=== PATIENT | female | born 1945 ===

== ENCOUNTER 2021-11-13 15:12 | Emergency (ER) | payer MEDICARE ==
[2021-11-13 15:40] VITALS: BP 153/52
== END 2021-11-13 23:10 | disposition left against medical advice (07) ==
LOC: ED 15:12
DX: R51.9 Headache, unspecified (principal); Z53.21 Procedure and treatment not carried out due to patient leaving prior to being seen by health care provider

== ENCOUNTER 2021-11-29 11:45 | Observation (INO) | payer MEDICARE ==
[2021-11-29] MEDS ORDERED: METOCLOPRAMIDE 10 MG/2 ML INJ IV ONE (12:19)
[2021-11-29] MEDS ORDERED: LACTATED RINGERS 500 ML IV ONE (12:20)
--- NOTE | 2021-11-29 12:20 | Emergency Department Report ---
ED General Adult HPI - General Chief complaint: Syncope Stated complaint: FAINTING Time Seen by Provider: 11/29/21 12:08 Source: patient, EMS ( EMS documentation not available at time of chart dictation ), RN notes reviewed Mode of arrival: Stretcher Limitations: No Limitations - History of Present Illness Initial comments: The patient was evaluated in the emergency department for symptoms described in the history of present illness. He/she was evaluated in the context of the global COVID-19 pandemic, which necessitated consideration that the patient might be at risk for infection with the virus that causes COVID-19. Institutional protocols and algorithms that pertain to the evaluation of patients at risk for COVID-19 are in a state of rapid change based on information released by regulatory bodies including the CDC and federal and state organizations. These policies and algorithms were followed during the patient's care in the emergency department. Please note that these policies, procedures and recommendations changed on a rapid basis. This patient is a pleasant and cooperative 76-year-old female who recently relocated from [place]. She does not have a local primary care doctor or city supervisor. Her past medical history includes atrial pacemaker, CAD, hypertension and possible high cholesterol. She also reports multiple cardiac stents. She presents to the department today with a complaint of near syncope/loss of consciousness multiple times. About a week ago, she developed an occipital and right-sided left-sided neck headache, which is not sudden or thunderclap in nature, not maximal in intensity. She was seen in an outpatient urgent care center, who recommended that her symptoms are most likely musculoskeletal. T here is no recent trauma, motor vehicle accident, or chiropractic manipulation. Today, she reports that she got up from sitting, and felt lightheaded. She then went to the bathroom, but did not urinate or defecate. She again felt dizzy and lightheaded, but did not pass out. She sat down, and did not hit her head. She then reports that she went to lay down, and felt dizzy and lightheaded again . She reports recent trip from [place]. She denies loss of vision, midline neck pain, chest pain, abdominal pain, shortness of breath, hematemesis and bright red blood per rectum. She endorses compliance with her medications, and reports that she has had no recent medication changes. Patient reports having a pacemaker defibrillator placed at [facility] in 2020. She states that it was placed for a mild heart attack. She does not have a device card on her -: Sudden, days(s) Location: head, neck Severity scale (0 -10): 0 Consistency: intermittent Improves with: none Worsens with: none - Related Data Home Medications Medication Instructions Recorded Confirmed Last Taken Atorvastatin 80 mg PO QHS 11/29/21 11/29/21 Unknown Candesartan (NF) 32 mg PO DAILY 11/29/21 11/29/21 Unknown Isosorbide Mononitrate ER 30 mg PO DAILY 11/29/21 11/29/21 Unknown Nitroglycerin 0.4 mg SL PRN 11/29/21 11/29/21 Unknown Uloric 40 mg PO DAILY 11/29/21 11/29/21 Unknown amLODIPine 10 mg pe PO DAILY 11/29/21 11/29/21 Unknown carvediloL 25 mg PO DAILY 11/29/21 11/29/21 Unknown tiZANidine 4 mg PO Q6HR PRN 11/29/21 11/29/21 Unknown Allergies Allergy/AdvReac Type Severity Reaction Status Date / Time lisinopril AdvReac Angioedema Verified 11/13/21 15:41 ED Review of Systems ROS: Stated complaint: FAINTING Other details as noted in HPI Constitutional: denies: fever Eyes: denies: eye discharge, vision change Respiratory: denies: cough Cardiovascular: syncope (Near syncope). denies: chest pain Gastrointestinal: denies: abdominal pain, hematemesis, melena, hematochezia Genitourinary: denies: dysuria Musculoskeletal: myalgia Neurological: headache. denies: weakness, numbness, paresthesias Hematological/Lymphatic: denies: easy bleeding ED Past Medical Hx - Past Medical History Previous Medical History?: Yes Hx Hypertension: Yes Additional medical history: HYPERLIPIDEMIA, GOUT - Surgical History Hx Pacemaker: Yes - Medications Home Medications: Home Medications Medication Instructions Recorded Confirmed Last Taken Type Atorvastatin 80 mg PO QHS 11/29/21 11/29/21 Unknown History Candesartan (NF) 32 mg PO DAILY 11/29/21 11/29/21 Unknown History Isosorbide Mononitrate ER 30 mg PO DAILY 11/29/21 11/29/21 Unknown History Nitroglycerin 0.4 mg SL PRN 11/29/21 11/29/21 Unknown History Uloric 40 mg PO DAILY 11/29/21 11/29/21 Unknown History amLODIPine 10 mg pe PO DAILY 11/29/21 11/29/21 Unknown History carvediloL 25 mg PO DAILY 11/29/21 11/29/21 Unknown History tiZANidine 4 mg PO Q6HR PRN 11/29/21 11/29/21 Unknown History ED Physical Exam - General Limitations: No Limitations General appearance: alert, in no apparent distress - Head Head exam: Present: atraumatic, normocephalic - Eye Eye exam: Present: normal appearance, EOMI, other (Visual acuity is intact to finger counting and color perception at a close distance). Absent: nystagmus - ENT ENT exam: Present: normal exam, normal orophraynx, mucous membranes moist, normal external ear exam - Neck Neck exam: Present: normal inspection, full ROM. Absent: tenderness, meningismus - Respiratory Respiratory exam: Present: normal lung sounds bilaterally. Absent: respiratory distress, wheezes, rales, rhonchi, stridor, decreased breath sounds - Cardiovascular Cardiovascular Exam: Present: regular rate, normal rhythm, normal heart sounds. Absent: bradycardia, tachycardia, irregular rhythm, systolic murmur, diastolic murmur, rubs, gallop - GI/Abdominal GI/Abdominal exam: Present: soft. Absent: distended, tenderness, guarding, rebound, rigid, pulsatile mass - Extremities Exam Extremities exam: Present: normal inspection, full ROM, other (2+ pulses noted in the bilateral upper and lower extremities. There is no palpable cord. negative Homans sign. Muscular compartments are soft. The pelvis is stable.). Absent: pedal edema, calf tenderness - Back Exam Back exam: Present: normal inspection, full ROM. Absent: tenderness, CVA tenderness (R), CVA tenderness (L), paraspinal tenderness, vertebral tenderness - Neurological Exam Neurological exam: Present: alert (There is no past-pointing. There is normal [id number]. There is no pronator drift.), oriented X3, other (No facial droop. Tongue midline. Extraocular movements intact bilaterally. Facial sensation intact to light touch in V1, V2, V3 distribution bilaterally. 5 and a 5 strength in 4 extremities. Sensation intact to light touch in 4 extremities.) . Absent: motor sensory deficit - Psychiatric Psychiatric exam: Present: normal affect, normal mood - Skin Skin exam: Present: warm, dry, intact, normal color. Absent: rash ED Course Vital Signs 11/29/21 11/29/21 11/29/21 11:54 12:25 12:30 Temperature 97.6 F Pulse Rate 60 64 60 Respiratory 16 9 L 11 L Rate Blood Pressure Blood Pressure 138/64 [Right] O2 Sat by Pulse 100 100 99 Oximetry 11/29/21 11/29/21 11/29/21 12:37 12:46 13:00 Temperature Pulse Rate 60 62 Respiratory 12 15 Rate Blood Pressure 155/52 155/52 Blood Pressure [Right] O2 Sat by Pulse 100 99 100 Oximetry 11/29/21 11/29/21 11/29/21 13:16 13:30 13:46 Temperature Pulse Rate 60 60 63 Respiratory 14 12 8 L Rate Blood Pressure 155/52 155/52 190/64 Blood Pressure [Right] O2 Sat by Pulse 100 99 99 Oximetry 11/29/21 11/29/21 11/29/21 14:00 14:16 14:30 Temperature Pulse Rate 64 60 67 Respiratory 12 14 12 Rate Blood Pressure 155/52 155/52 155/52 Blood Pressure [Right] O2 Sat by Pulse 100 99 Oximetry 11/29/21 11/29/21 11/29/21 14:46 15:00 15:16 Temperature Pulse Rate 63 60 71 Respiratory 13 14 21 Rate Blood Pressure 131/46 190/64 190/64 Blood Pressure [Right] O2 Sat by Pulse Oximetry - Reevaluation(s) Reevaluation #1: 11/29/21 15:11 Differential diagnosis, include but not limited to: Orthostasis, vagal event, structural cardiac disease, pacemaker defibrillator failure, electrolyte derangement, thyroid derangement, migraine headache, tension headache, cluster headache, vertebrobasilar insufficiency, posterior circulation dissection., Pulmonary embolism Assessment and plan: 76-year-old female with complex past medical history, presenting with multiple episodes of near syncope, and nonspecific headache and neck pain. She has a GCS of 15, with an NIH score of 0. She is clinically sober at this time. Her physical examination thus far is benign and non contributory. Attempt [facility], to determine what make and model pacemaker is, and why is placed. Laboratory studies noncontributory. Obtain CT scan of the brain, CT angiogram head and neck. She is not currently tachycardic, tachypneic or hypoxic, but given multiple episodes of near syncope, and recent trip from [place], D-dimer sent, elevated, therefore, obtain CT imaging of the chest to evaluate for large pulmonary embolism. Treat symptoms. Discussed with patient. She is agreeable to the plan of care. All questions are answered. 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 11/29/21 16:29 CT scan brain negative for acute findings. CT angiogram head and neck negative for acute findings Discussed with [employer] dental sales representative, . Alban Levy. The ER/hospital does not have a device to do an ICD interrogation. He reports that [employer] can present tomorrow to do a device interrogation. Hospital physician, Dr. Radha Desai to admit to [facility] ED Medical Decision Making - Lab Data Result diagrams: 11/29/21 13:55 11/29/21 13:55 Vital Signs 11/29/21 11/29/21 11/29/21 11:54 12:25 12:30 Temperature 97.6 F Pulse Rate 60 64 60 Respiratory 16 9 L 11 L Rate Blood Pressure Blood Pressure 138/64 [Right] O2 Sat by Pulse 100 100 99 Oximetry 11/29/21 11/29/21 12:37 12:46 Temperature Pulse Rate 60 Respiratory 12 Rate Blood Pressure 155/52 Blood Pressure [Right] O2 Sat by Pulse 100 99 Oximetry Lab Results 11/29/21 11/29/21 11/29/21 Range/Units 12:55 13:55 13:55 WBC 8.5 (4.5-11.0) K/mm3 RBC 3.80 (3.65-5.03) M/mm3 Hgb 10.0 L (10.1-14.3) gm/dl Hct 31.6 (30.3-42.9) % MCV 83 (79-97) fl MCH 26 L (28-32) pg MCHC 32 (30-34) % RDW 16.3 H (13.2-15.2) % Plt Count 296 (140-440) K/mm3 Lymph % (Auto) 20.4 (13.4-35.0) % [place] % (Auto) 5.5 (0.0-7.3) % Eos % (Auto) 0.3 (0.0-4.3) % Baso % (Auto) 0.8 (0.0-1.8) % Lymph # (Auto) 1.7 (1.2-5.4) K/mm3 [place] # (Auto) 0.5 (0.0-0.8) K/mm3 Eos # (Auto) 0.0 (0.0-0.4) K/mm3 Baso # (Auto) 0.1 (0.0-0.1) K/mm3 Seg Neutrophils % 73.0 H (40.0-70.0) % Seg Neutrophils # 6.2 (1.8-7.7) K/mm3 D-Dimer (0-234) ng/mlDDU Sodium 142 (137-145) mmol/L Potassium 4.3 (3.6-5.0) mmol/L Chloride 106.8 (98-107) mmol/L Carbon Dioxide 24 (22-30) mmol/L Anion Gap 16 mmol/L BUN 12 (7-17) mg/dL Creatinine 0.7 (0.6-1.2) mg/dL Estimated GFR > 60 ml/min BUN/Creatinine Ratio 17 % Glucose 100 (65-100) mg/dL Calcium 9.4 (8.4-10.2) mg/dL Magnesium 1.70 (1.7-2.3) mg/dL Total Bilirubin 0.50 (0.1-1.2) mg/dL AST 21 (5-40) units/L ALT 9 (7-56) units/L Alkaline Phosphatase 112 (35-129) units/L Total Creatine Kinase (30-135) units/L Troponin T < 0.010 (0.00-0.029) ng/mL Total Protein 7.9 (6.3-8.2) g/dL Albumin 3.9 (3.9-5) g/dL Albumin/Globulin Ratio 1.0 % TSH (0.270-4.200) mlU/mL Urine Color Straw (Yellow) Urine Turbidity Clear (Clear) Urine pH 7.0 (5.0-7.0) Ur Specific Shock 1.009 (1.003-1.030) Urine Protein <15 mg/dl (Negative) mg/dL Urine Glucose (UA) Neg (Negative) mg/dL Urine Ketones Neg (Negative) mg/dL Urine Blood Sm (Negative) Urine Nitrite Neg (Negative) Urine Bilirubin Neg (Negative) Urine Urobilinogen < 2.0 (<2.0) mg/dL Ur Leukocyte Esterase Neg (Negative) Urine WBC (Auto) 1.0 (0.0-6.0) /HPF Urine RBC (Auto) 10.0 (0.0-6.0) /HPF U Epithel Cells (Auto) 1.0 (0-13.0) /HPF Urine Bacteria (Auto) 1+ (Negative) /HPF Salicylates (2.8-20.0) mg/dL Acetaminophen (10.0-30.0) ug/mL 11/29/21 11/29/21 11/29/21 Range/Units 13:55 13:55 13:55 WBC (4.5-11.0) K/mm3 RBC (3.65-5.03) M/mm3 Hgb (10.1-14.3) gm/dl Hct (30.3-42.9) % MCV (79-97) fl MCH (28-32) pg MCHC (30-34) % RDW (13.2-15.2) % Plt Count (140-440) K/mm3 Lymph % (Auto) (13.4-35.0) % [place] % (Auto) (0.0-7.3) % Eos % (Auto) (0.0-4.3) % Baso % (Auto) (0.0-1.8) % Lymph # (Auto) (1.2-5.4) K/mm3 [place] # (Auto) (0.0-0.8) K/mm3 Eos # (Auto) (0.0-0.4) K/mm3 Baso # (Auto) (0.0-0.1) K/mm3 Seg Neutrophils % (40.0-70.0) % Seg Neutrophils # (1.8-7.7) K/mm3 D-Dimer 795.20 H (0-234) ng/mlDDU Sodium (137-145) mmol/L Potassium (3.6-5.0) mmol/L Chloride (98-107) mmol/L Carbon Dioxide (22-30) mmol/L Anion Gap mmol/L BUN (7-17) mg/dL Creatinine (0.6-1.2) mg/dL Estimated GFR ml/min BUN/Creatinine Ratio % Glucose (65-100) mg/dL Calcium (8.4-10.2) mg/dL Magnesium (1.7-2.3) mg/dL Total Bilirubin (0.1-1.2) mg/dL AST (5-40) units/L ALT (7-56) units/L Alkaline Phosphatase (35-129) units/L Total Creatine Kinase 87 (30-135) units/L Troponin T (0.00-0.029) ng/mL Total Protein (6.3-8.2) g/dL Albumin (3.9-5) g/dL Albumin/Globulin Ratio % TSH 1.200 (0.270-4.200) mlU/mL Urine Color (Yellow) Urine Turbidity (Clear) Urine pH (5.0-7.0) Ur Specific Shock (1.003-1.030) Urine Protein (Negative) mg/dL Urine Glucose (UA) (Negative) mg/dL Urine Ketones (Negative) mg/dL Urine Blood (Negative) Urine Nitrite (Negative) Urine Bilirubin (Negative) Urine Urobilinogen (<2.0) mg/dL Ur Leukocyte Esterase (Negative) Urine WBC (Auto) (0.0-6.0) /HPF Urine RBC (Auto) (0.0-6.0) /HPF U Epithel Cells (Auto) (0-13.0) /HPF Urine Bacteria (Auto) (Negative) /HPF Salicylates (2.8-20.0) mg/dL Acetaminophen (10.0-30.0) ug/mL 11/29/21 11/29/21 Range/Units 13:55 13:55 WBC (4.5-11.0) K/mm3 RBC (3.65-5.03) M/mm3 Hgb (10.1-14.3) gm/dl Hct (30.3-42.9) % MCV (79-97) fl MCH (28-32) pg MCHC (30-34) % RDW (13.2-15.2) % Plt Count (140-440) K/mm3 Lymph % (Auto) (13.4-35.0) % [place] % (Auto) (0.0-7.3) % Eos % (Auto) (0.0-4.3) % Baso % (Auto) (0.0-1.8) % Lymph # (Auto) (1.2-5.4) K/mm3 [place] # (Auto) (0.0-0.8) K/mm3 Eos # (Auto) (0.0-0.4) K/mm3 Baso # (Auto) (0.0-0.1) K/mm3 Seg Neutrophils % (40.0-70.0) % Seg Neutrophils # (1.8-7.7) K/mm3 D-Dimer (0-234) ng/mlDDU Sodium (137-145) mmol/L Potassium (3.6-5.0) mmol/L Chloride (98-107) mmol/L Carbon Dioxide (22-30) mmol/L Anion Gap mmol/L BUN (7-17) mg/dL Creatinine (0.6-1.2) mg/dL Estimated GFR ml/min BUN/Creatinine Ratio % Glucose (65-100) mg/dL Calcium (8.4-10.2) mg/dL Magnesium (1.7-2.3) mg/dL Total Bilirubin (0.1-1.2) mg/dL AST (5-40) units/L ALT (7-56) units/L Alkaline Phosphatase (35-129) units/L Total Creatine Kinase (30-135) units/L Troponin T (0.00-0.029) ng/mL Total Protein (6.3-8.2) g/dL Albumin (3.9-5) g/dL Albumin/Globulin Ratio % TSH (0.270-4.200) mlU/mL Urine Color (Yellow) Urine Turbidity (Clear) Urine pH (5.0-7.0) Ur Specific Shock (1.003-1.030) Urine Protein (Negative) mg/dL Urine Glucose (UA) (Negative) mg/dL Urine Ketones (Negative) mg/dL Urine Blood (Negative) Urine Nitrite (Negative) Urine Bilirubin (Negative) Urine Urobilinogen (<2.0) mg/dL Ur Leukocyte Esterase (Negative) Urine WBC (Auto) (0.0-6.0) /HPF Urine RBC (Auto) (0.0-6.0) /HPF U Epithel Cells (Auto) (0-13.0) /HPF Urine Bacteria (Auto) (Negative) /HPF Salicylates < 0.3 L (2.8-20.0) mg/dL Acetaminophen 5.0 L (10.0-30.0) ug/mL - EKG Data -: EKG Interpreted by Sd - EKG Data When compared to previous EKG there are: previous EKG unavailable 11/29/21 15:05 EKG is interpreted at 12: 20 Atrial ventricular dual paced rhythm. Biventricular paced rhythm. Good capture, ventricular rate 59 to 60 bpm, left axis deviation, QTC 560 ms. Abnormal EKG. Non-STEMI - Radiology Data Radiology results: pending, report reviewed, image reviewed CT head/brain wo con INDICATION: headache, neck pain fainting. TECHNIQUE: Routine CT head. All CT scans at this location are performed using CT dose r eduction for ALARA by means of automated exposure control. COMPARISON: None. FINDINGS: Intracranial: Kaufman-white matter differentiation is maintained. No intracranial hemorrhage. No extra axial collection. No hydrocephalus. No herniation. Minimal patchy areas of scattered white matter hypoattenuation most consistent with minimal sequela of chronic microvascular disease, common finding for age. Sinuses: Paranasal sinuses and mastoid air cells are essentially clear. Orbits: Globes are intact. Calvarium: No acute fracture. IMPRESSION: 1. No acute intracranial abnormality. Signer Name: Kaleb Rizzo MD Signed: 11/29/2021 3:02 PM Workstation Name: [id number] CT angio chest INDICATION / CLINICAL INFORMATION: Near syncope multiple times, elevated D-dimer. TECHNIQUE: Axial CT images were obtained through the chest after injection of IV contrast. 3 plane MIP and/or 3D reconstructions were p roduced. All CT scans at this location are performed using CT dose reduction for [employer] by means of automated exposure control. COMPARISON: None available. FINDINGS: PULMONARY ARTERIES: No pulmonary emboli. HEART: Large quantity of multivessel coronary atherosclerotic calcifications. AORTA: Large quantity of arterial atherosclerosis. MEDIASTINUM / KELLY: No significant abnormality. LUNGS: Lungs are clear No pleural effusion. No pneumothorax. ADDITIONAL FINDINGS: Transvenous AICD. UPPER ABDOMEN: No acute findings. SKELETAL STRUCTURES: No significant osseous abnormality. IMPRESSION: 1. No CT evidence for pulmonary embolism. 2. No acute findings. Signer Name: Kaleb Rizzo MD Signed: 11/29/2021 3:06 PM Workstation Name: [id number] CTA NECK WITH CONTRAST 10/30/2021 INDICATION / CLINICAL INFORMATION: headache, neck pain fainting. COMPARISON: None. TECHNIQUE: Routine CTA of the neck is performed. 3-D/MIP reformats were postprocessed. Percentage stenosis is determined by direct quantitative measurements of diseased internal carotid artery diameter compared with normal distal internal carotid artery reference segments or by criteria similar to NASCET where applicable. All CT scans at this location are performed using CT dose reduction for ALARA by means of automated exposure control. CONTRAST: 100 ml of inflammation not provided FINDINGS: Carotid bifurcations: At the right bifurcation, atherosclerotic plaque and calcification is present, associated with high-grade stenosis near the origin of the right internal carotid artery, in the range of greater than 90%. At the left bifurcation, as is chronic calcification and plaque is present. There is 75% narrowing of the occipital internal carotid artery. Carotid arteries: No significant abnormality. Cervical vertebral arteries: No significant abnormality. Aortic arch: Atherosclerotic calcification associated with the aortic arch and proximal great vessels. There is evidence of stenosis at their origin of the left subclavian artery. None. IMPRESSION: Bilateral carotid bifurcation stenosis, slightly greater on the right. Signer Name: Jensen Cramer MD Signed: 11/29/2021 3:14 PM Workstation Name: [id number] CTA HEAD WITH CONTRAST 11/29/2021 HISTORY: headache, neck pain fainting. COMPARISON: None. TECHNIQUE: All CT scans at this location are performed using CT dose reduction for ALARA by means of automated exposure control.. 3-D/MIP reformats postprocessed. Percentage stenosis is determined by direct qu antitative measurements of diseased internal carotid artery diameter compared with normal distal internal carotid artery reference segments or by criteria similar to NASCET where applicable. CONTRAST: 75 ml of Omnipaque 350 FINDINGS: CTA HEAD: Intracranial vertebral arteries: No significant abnormality. Basilar artery: No significant abnormality. Posterior cerebral arteries: No significant abnormality. Intracranial internal carotid arteries: There is chronic plaque and calcifications associated with the distal internal carotid arteries bilaterally. Anterior cerebral arteries: No significant abnormality. Middle cerebral arteries: No significant abnormality. Dural venous sinuses:Not optim ally opacified. No significant abnormality. Additional findings: None. IMPRESSION: 1. No significant abnormality. Signer Name: Jensen Cramer MD Signed: 11/29/2021 3:17 PM Workstation Name: [id number] Critical care attestation.: If time is entered above; I have spent that time in minutes in the direct care of this critically ill patient, excluding procedure time. ED Disposition Clinical Impression: Near syncope, Acute headache, Neck pain, Implantable cardioverter-defibrillator (ICD) in situ Disposition: 09 ADMITTED INPATIENT Is pt being admited?: Yes Does the pt Need Aspirin: No Condition: Good Referrals: PRIMARY CARE, [Primary Care Provider] - 3-5 Days
[2021-11-29 13:07] LABS: Bilirubin,Urine NEG (Negative); Blood,Urine SM (Negative); Color,Urine Straw (Yellow); Protein,Urine <15 mg/dL mg/dL (Negative); Urobilinogen,Urine < 2.0 mg/dL (<2.0)
[2021-11-29 13:34] LABS: Bacteria,Urine 1+ /HPF (Negative)
[2021-11-29 14:23] LABS: Basophils # (Auto) 0.1 K/mm3 (0.0-0.1); Basophils % (Auto) 0.8 % (0.0-1.8); Eosinophils % (Auto) 0.3 % (0.0-4.3); Hematocrit 31.6 % (30.3-42.9); Lymphocytes # (Auto) 1.7 K/mm3 (1.2-5.4); Lymphocytes % (Auto) 20.4 % (13.4-35.0); Mean Corpuscular HGB Conc 32 % (30-34); Mean Corpuscular Volume 83 fl (79-97); Monocytes # (Auto) 0.5 K/mm3 (0.0-0.8); Monocytes % (Auto) 5.5 % (0.0-7.3); Platelet Count 296 K/mm3 (140-440); Red Cell Distribution Width 16.3 % (13.2-15.2)
[2021-11-29 14:47] LABS: Alanine Aminotransferase 9 units/L (7-56); Albumin 3.9 g/dL (3.9-5); Blood Urea Nitrogen 12 mg/dL (7-17); Calcium 9.4 mg/dL (8.4-10.2); Hemolysis Index 3
[2021-11-29 14:48] LABS: BUN/Creatinine Ratio 17
--- NOTE | 2021-11-29 16:07 | Cat Scan Report ---
CT head/brain wo con INDICATION: headache, neck pain fainting. TECHNIQUE: Routine CT head. All CT scans at this location are performed using CT dose reduction for A GINA by means of automated exposure control. COMPARISON: None. FINDINGS: Intracranial: Kaufman-white matter differentiation is maintained. No intracranial hemorrhage. No extra a xial collection. No hydrocephalus. No herniation. Minimal patchy areas of scattered white matter hypo attenuation most consistent with minimal sequela of chronic microvascular disease, common finding for age. Sinuses: Paranasal sinuses and mastoid air cells are essentially clear. Orbits: Globes are intact. Calvarium: No acute fracture. IMPRESSION: 1. No acute intracranial abnormality. Signer Name: Kaleb Rizzo MD Signed: 11/29/2021 4:02 PM Workstation Name: [id number]
--- NOTE | 2021-11-29 16:11 | Cat Scan Report ---
CT angio chest INDICATION / CLINICAL INFORMATION: Near syncope multiple times, elevated D-dimer. TECHNIQUE: Axial CT images were obtained through the chest after injection of IV contrast. 3 plane MIP and/or 3D reconstructions were produced. All CT scans at this location are performed using CT dose reduction f or ALARA by means of automated exposure control. COMPARISON: None available. FINDINGS: PULMONARY ARTERIES: No pulmonary emboli. HEART: Large quantity of multivessel coronary atherosclerotic calcifications. AORTA: Large quantity of arterial atherosclerosis. MEDIASTINUM / KELLY: No significant abnormality. LUNGS: Lungs are clear No pleural effusion. No pneumothorax. ADDITIONAL FINDINGS: Transvenous AICD. UPPER ABDOMEN: No acute findings. SKELETAL STRUCTURES: No significant osseous abnormality. IMPRESSION: 1. No CT evidence for pulmonary embolism. 2. No acute findings. Signer Name: Kaleb Rizzo MD Signed: 11/29/2021 4:06 PM Workstation Name: [id number]
--- NOTE | 2021-11-29 16:19 | Cat Scan Report ---
CTA NECK WITH CONTRAST 10/30/2021 INDICATION / CLINICAL INFORMATION: headache, neck pain fainting. COMPARISON: None. TECHNIQUE: Routine CTA of the neck is performed. 3-D/MIP reformats were postprocessed. Percentage st enosis is determined by direct quantitative measurements of diseased internal carotid artery diameter compared with normal distal internal carotid artery reference segments or by criteria similar to ANDI CET where applicable. All CT scans at this location are performed using CT dose reduction for ALARA b y means of automated exposure control. CONTRAST: 100 ml of inflammation not provided FINDINGS: Carotid bifurcations: At the right bifurcation, atherosclerotic plaque and calcification is present, associated with high-grade stenosis near the origin of the right internal carotid artery, in the rang e of greater than 90%. At the left bifurcation, as is chronic calcification and plaque is present. Th ere is 75% narrowing of the occipital internal carotid artery. Carotid arteries: No significant abnormality. Cervical vertebral arteries: No significant abnormality. Aortic arch: Atherosclerotic calcification associated with the aortic arch and proximal great vessels . There is evidence of stenosis at their origin of the left subclavian artery. None. IMPRESSION: Bilateral carotid bifurcation stenosis, slightly greater on the right. Signer Name: Jensen Cramer MD Signed: 11/29/2021 4:14 PM Workstation Name: [id number]
--- NOTE | 2021-11-29 16:21 | Cat Scan Report ---
CTA HEAD WITH CONTRAST 11/29/2021 HISTORY: headache, neck pain fainting. COMPARISON: None. TECHNIQUE: All CT scans at this location are performed using CT dose reduction for ALARA by means of automated exposure control.. 3-D/MIP reformats postprocessed. Percentage stenosis is determined by d irect quantitative measurements of diseased internal carotid artery diameter compared with normal dis tresa internal carotid artery reference segments or by criteria similar to NASCET where applicable. CONTRAST: 75 ml of Omnipaque 350 FINDINGS: CTA HEAD: Intracranial vertebral arteries: No significant abnormality. Basilar artery: No significant abnormality. Posterior cerebral arteries: No significant abnormality. Intracranial internal carotid arteries: There is chronic plaque and calcifications associated with th e distal internal carotid arteries bilaterally. Anterior cerebral arteries: No significant abnormality. Middle cerebral arteries: No significant abnormality. Dural venous sinuses:Not optimally opacified. No significant abnormality. Additional findings: None. IMPRESSION: 1. No significant abnormality. Signer Name: Jensen Cramer MD Signed: 11/29/2021 4:17 PM Workstation Name: [id number]
[2021-11-29] MEDS ORDERED: ONDANSETRON 4 MG/2 ML INJ IV PRN (17:29)
[2021-11-29] MEDS ORDERED: oxyCODONE /ACETAMINOPHEN 5-325MG TAB PO PRN (17:29)
[2021-11-29] MEDS ORDERED: NON-FORMULARY EACH (Tizanidine 4 MG) PO PRN (17:37)
[2021-11-29] MEDS ORDERED: ISOSORBIDE MONONITRATE 30 MG PO SCH (17:45)
[2021-11-29] MEDS ORDERED: ULORIC 40 MG PO SCH (17:45)
[2021-11-29] MEDS ORDERED: tiZANidine TAB 4 MG TAB PO PRN (17:46)
[2021-11-29] MEDS ORDERED: NON-FORMULARY EACH (Atorvastatin 80 MG) PO SCH (22:00)
[2021-11-29] MEDS ORDERED: MORPHINE 2 MG/1 ML INJ IV ONE (22:43)
[2021-11-30 05:58] LABS: Basophils % (Auto) 0.4 % (0.0-1.8); Eosinophils % (Auto) 0.4 % (0.0-4.3); Hematocrit 32.6 % (30.3-42.9); Hemoglobin 10.5 gm/dl (10.1-14.3); Lymphocytes # (Auto) 2.3 K/mm3 (1.2-5.4); Lymphocytes % (Auto) 30.8 % (13.4-35.0); Mean Corpuscular HGB Conc 32 % (30-34); Mean Corpuscular Volume 83 fl (79-97); Monocytes # (Auto) 0.6 K/mm3 (0.0-0.8); Monocytes % (Auto) 8.2 % (0.0-7.3); Platelet Count 341 K/mm3 (140-440); Red Blood Count 3.94 M/mm3 (3.65-5.03); Red Cell Distribution Width 16.3 % (13.2-15.2)
[2021-11-30 06:15] LABS: BUN/Creatinine Ratio 13; Blood Urea Nitrogen 12 mg/dL (7-17); Calcium 9.9 mg/dL (8.4-10.2); Hemolysis Index 1
--- NOTE | 2021-11-30 07:58 | History and Physical Report ---
History of Present Illness Date of examination: 11/29/21 Date of admission: 11/29/21 17:29 Chief complaint: Nearly passed out this a.m. History of present illness: This patient is a pleasant and cooperative 76-year-old female who recently relocated from [place]. She does not have a local primary care doctor or product support consultant. Her past medical history includes atrial pacemaker, CAD, hypertension and possible high cholesterol. She also reports multiple cardiac stents. She presents to the department today with a complaint of near syncope/loss of consciousness multiple times. About a week ago, she developed an occipital and right-sided left-sided neck headache, which is not sudden or thunderclap in nature, not maximal in intensity. She was seen in an outpatient urgent care center, who recommended that her symptoms are most likely musculoskeletal. There is no recent trauma, motor vehicle accident, or chiropractic manipulation. Today, she reports that she got up from sitting, and felt lightheaded. She then went to the bathroom, but did not urinate or defecate. She again felt dizzy and lightheaded, but did not pass out. She sat down, and did not hit her head. She then reports that she went to lay down, and felt dizzy and lightheaded again. She reports recent trip from [place]. She denies loss of vision, midline neck pain, chest pain, abdominal pain, shortness of breath, hematemesis and bright red blood per rectum. She endorses compliance with her medications, and reports that she has had no recent medication changes. Patient reports having a pacemaker defibrillator placed at [facility] in 2020. She states that it was placed for a mild heart attack. She does not have a device card on her - Past Medical History --Previous Medical History?: Yes --Hypertension: Yes --Additional medical history: HYPERLIPIDEMIA, GOUT - Surgical History --Pacemaker: Yes - Medications --Home Medications: Home Medications Medication Instructions Recorded Confirmed Last Taken Type Atorvastatin 80 mg PO QHS 11/29/21 11/29/21 Unknown History Candesartan (NF) 32 mg PO DAILY 11/29/21 11/29/21 Unknown History Isosorbide Mononitrate ER 30 mg PO DAILY 11/29/21 11/29/21 Unknown History Nitroglycerin 0.4 mg SL PRN 11/29/21 11/29/21 Unknown History Uloric 40 mg PO DAILY 11/29/21 11/29/21 Unknown History amLODIPine 10 mg pe PO DAILY 11/29/21 11/29/21 Unknown History carvediloL 25 mg PO DAILY 11/29/21 11/29/21 Unknown History tiZANidine 4 mg PO Q6HR PRN 11/29/21 11/29/21 Unknown History Review of Systems ROS: Stated complaint: FAINTING Other details as noted in HPI Constitutional: denies: fever Eyes: denies: eye discharge, vision change Respiratory: denies: cough Cardiovascular: syncope (Near syncope). denies: chest pain Gastrointestinal: denies: abdominal pain, hematemesis, melena, hematochezia Genitourinary: denies: dysuria Musculoskeletal: myalgia Neurological: headache. denies: weakness, numbness, paresthesias Hematological/Lymphatic: denies: easy bleeding Medications and Allergies Allergies Allergy/AdvReac Type Severity Reaction Status Date / Time lisinopril Allergy Angioedema Verified 11/29/21 17:36 Home Medications Medication Instructions Recorded Confirmed Last Taken Type Atorvastatin 80 mg PO QHS 11/29/21 11/29/21 Unknown History Candesartan (NF) 32 mg PO DAILY 11/29/21 11/29/21 Unknown History Isosorbide Mononitrate ER 30 mg PO DAILY 11/29/21 11/29/21 Unknown History Nitroglycerin 0.4 mg SL PRN 11/29/21 11/29/21 Unknown History Uloric 40 mg PO DAILY 11/29/21 11/29/21 Unknown History amLODIPine 10 mg pe PO DAILY 11/29/21 11/29/21 Unknown History carvediloL 25 mg PO DAILY 11/29/21 11/29/21 Unknown History tiZANidine 4 mg PO Q6HR PRN 11/29/21 11/29/21 Unknown History Active Meds: Active Medications Acetaminophen (Acetaminophen 325 Mg Tab) 650 mg PO Q4H PRN PRN Reason: Pain MILD(1-3)/Fever >100.5/REED Amlodipine Besylate (Amlodipine 10 Mg Tab) 10 mg PO DAILY [facility] Atorvastatin Calcium (Atorvastatin 40 Mg Tab) 80 mg PO QHS [facility] Last Admin: 11/29/21 23:05 Dose: Not Given Isosorbide Mononitrate (Isosorbide Mononitrate Er 30 Mg Tab) 30 mg PO DAILY [facility] Losartan Potassium (Losartan 50 Mg Tab) 100 mg PO QDAY [facility] Miscellaneous Medication (Uloric) 40 mg PO DAILY [facility] Ondansetron HCl (Ondansetron 4 Mg/2 Ml Inj) 4 mg IV Q8H PRN PRN Reason: Nausea And Vomiting Last Admin: 11/30/21 00:25 Dose: 4 mg Oxycodone/Acetaminophen (Oxycodone /Acetaminophen 5-325mg Tab) 1 tab PO Q6H PRN PRN Reason: Pain, Moderate (4-6) Pneumococcal Polyvalent Vaccine (Pneumococcal 23 Valent 0.5 Ml Vial) 0.5 ml IM .ONCE ONE Stop: 11/30/21 12:01 Sodium Chloride (Sodium Chloride 0.9% 10 Ml Flush Syringe) 10 ml IV BID DAVID Last Admin: 11/29/21 23:28 Dose: 10 ml Sodium Chloride (Sodium Chloride 0.9% 10 Ml Flush Syringe) 10 ml IV PRN PRN PRN Reason: LINE FLUSH Tizanidine HCl (Tizanidine Tab 4 Mg Tab) 4 mg PO Q6HR PRN PRN Reason: Muscle Spasm Exam - Constitutional Vitals: Temp Pulse Resp BP Pulse Ox 97.6 F 67 16 99/54 99 11/29/21 11:54 11/29/21 23:31 11/29/21 23:31 11/29/21 23:31 11/29/21 23:31 General appearance: Present: no acute distress, well-nourished - EENT Eyes: Present: PERRL ENT: hearing intact, clear oral mucosa - Neck Neck: Present: supple, normal ROM - Respiratory Respiratory effort: normal Respiratory: bilateral: CTA - Cardiovascular Heart rate: 78 Rhythm: regular Heart Sounds: Present: S1 & S2. Absent: rub, click - Extremities Extremities: no ischemia, pulses intact, pulses symmetrical, No edema Peripheral Pulses: within normal limits - Abdominal General gastrointestinal: Present: soft, non-tender, non-distended, normal bowel sounds Female genitourinary: Present: normal - Integumentary Integumentary: Present: clear, warm, dry - Musculoskeletal Musculoskeletal: gait normal, strength equal bilaterally - Psychiatric Psychiatric: appropriate mood/affect, intact judgment & insight - Neurologic Neurologic: CNII-XII intact, moves all extremities - Allied Health Allied health notes reviewed: nursing HEART Score - HEART Score History: Moderately suspicious Age: > 65 Risk factors: 1-2 risk factors Troponin: Troponin T < 0.010 ng/mL (0.00-0.029) 11/29/21 13:55 Troponin: < normal limit - Critical Actions Critical Actions: 4-6 pts:12-16.6% risk of adverse cardiac event. Should be admitted Results - Labs CBC & Chem 7: 11/30/21 05:31 11/30/21 05:31 Labs: Laboratory Last Values WBC 7.5 K/mm3 (4.5-11.0) 11/30/21 05:31 RBC 3.94 M/mm3 (3.65-5.03) 11/30/21 05:31 Hgb 10.5 gm/dl (10.1-14.3) 11/30/21 05:31 Hct 32.6 % (30.3-42.9) 11/30/21 05:31 MCV 83 fl (79-97) 11/30/21 05:31 MCH 27 pg (28-32) L 11/30/21 05:31 MCHC 32 % (30-34) 11/30/21 05:31 RDW 16.3 % (13.2-15.2) H 11/30/21 05:31 Plt Count 341 K/mm3 (140-440) 11/30/21 05:31 Lymph % (Auto) 30.8 % (13.4-35.0) 11/30/21 05:31 [place] % (Auto) 8.2 % (0.0-7.3) H 11/30/21 05:31 Eos % (Auto) 0.4 % (0.0-4.3) 11/30/21 05:31 Baso % (Auto) 0.4 % (0.0-1.8) 11/30/21 05:31 Lymph # (Auto) 2.3 K/mm3 (1.2-5.4) 11/30/21 05:31 [place] # (Auto) 0.6 K/mm3 (0.0-0.8) 11/30/21 05:31 Eos # (Auto) 0.0 K/mm3 (0.0-0.4) 11/30/21 05:31 Baso # (Auto) 0.0 K/mm3 (0.0-0.1) 11/30/21 05:31 Seg Neutrophils % 60.2 % (40.0-70.0) 11/30/21 05:31 Seg Neutrophils # 4.5 K/mm3 (1.8-7.7) 11/30/21 05:31 D-Dimer 795.20 ng/mlDDU (0-234) H 11/29/21 13:55 Sodium 142 mmol/L (137-145) 11/30/21 05:31 Potassium 4.5 mmol/L (3.6-5.0) 11/30/21 05:31 Chloride 101.4 mmol/L (98-107) 11/30/21 05:31 Carbon Dioxide 29 mmol/L (22-30) 11/30/21 05:31 Anion Gap 16 mmol/L 11/30/21 05:31 BUN 12 mg/dL (7-17) 11/30/21 05:31 Creatinine 0.9 mg/dL (0.6-1.2) 11/30/21 05:31 Estimated GFR > 60 ml/min 11/30/21 05:31 BUN/Creatinine Ratio 13 % 11/30/21 05:31 Glucose 96 mg/dL (65-100) 11/30/21 05:31 Calcium 9.9 mg/dL (8.4-10.2) 11/30/21 05:31 Magnesium 1.70 mg/dL (1.7-2.3) 11/29/21 13:55 Total Bilirubin 0.50 mg/dL (0.1-1.2) 11/29/21 13:55 AST 21 units/L (5-40) 11/29/21 13:55 ALT 9 units/L (7-56) 11/29/21 13:55 Alkaline Phosphatase 112 units/L (35-129) 11/29/21 13:55 Total Creatine Kinase 87 units/L (30-135) 11/29/21 13:55 Troponin T < 0.010 ng/mL (0.00-0.029) 11/29/21 13:55 Total Protein 7.9 g/dL (6.3-8.2) 11/29/21 13:55 Albumin 3.9 g/dL (3.9-5) 11/29/21 13:55 Albumin/Globulin Ratio 1.0 % 11/29/21 13:55 TSH 1.200 mlU/mL (0.270-4.200) 11/29/21 13:55 Urine Color Straw (Yellow) 11/29/21 12:55 Urine Turbidity Clear (Clear) 11/29/21 12:55 Urine pH 7.0 (5.0-7.0) 11/29/21 12:55 Ur Specific [place] 1.009 (1.003-1.030) 11/29/21 12:55 Urine Protein <15 mg/dl mg/dL (Negative) 11/29/21 12:55 Urine Glucose (UA) Neg mg/dL (Negative) 11/29/21 12:55 Urine Ketones Neg mg/dL (Negative) 11/29/21 12:55 Urine Blood Sm (Negative) 11/29/21 12:55 Urine Nitrite Neg (Negative) 11/29/21 12:55 Urine Bilirubin Neg (Negative) 11/29/21 12:55 Urine Urobilinogen < 2.0 mg/dL (<2.0) 11/29/21 12:55 Ur Leukocyte Esterase Neg (Negative) 11/29/21 12:55 Urine WBC (Auto) 1.0 /HPF (0.0-6.0) 11/29/21 12:55 Urine RBC (Auto) 10.0 /HPF (0.0-6.0) 11/29/21 12:55 U Epithel Cells (Auto) 1.0 /HPF (0-13.0) 11/29/21 12:55 Urine Bacteria (Auto) 1+ /HPF (Negative) 11/29/21 12:55 Salicylates < 0.3 mg/dL (2.8-20.0) L 11/29/21 13:55 Acetaminophen 5.0 ug/mL (10.0-30.0) L 11/29/21 13:55 Short CBC 11/29/21 11/30/21 Range/Units 13:55 05:31 WBC 8.5 7.5 (4.5-11.0) K/mm3 Hgb 10.0 L 10.5 (10.1-14.3) gm/dl Hct 31.6 32.6 (30.3-42.9) % Plt Count 296 341 (140-440) K/mm3 BMP 11/29/21 11/30/21 13:55 05:31 Sodium 142 142 Potassium 4.3 4.5 Chloride 106.8 101.4 Carbon Dioxide 24 29 BUN 12 12 Creatinine 0.7 0.9 Glucose 100 96 Calcium 9.4 9.9 Cardiac Enzymes 11/29/21 11/29/21 Range/Units 13:55 13:55 Total Creatine Kinase 87 (30-135) units/L Troponin T < 0.010 (0.00-0.029) ng/mL Liver Function 11/29/21 Range/Units 13:55 Total Bilirubin 0.50 (0.1-1.2) mg/dL AST 21 (5-40) units/L ALT 9 (7-56) units/L Alkaline Phosphatase 112 (35-129) units/L Albumin 3.9 (3.9-5) g/dL Urine 11/29/21 Range/Units 12:55 Urine Color Straw (Yellow) Urine pH 7.0 (5.0-7.0) Ur Specific [place] 1.009 (1.003-1.030) Urine Protein <15 mg/dl (Negative) mg/dL Urine Glucose (UA) Neg (Negative) mg/dL - Imaging and Cardiology EKG: report reviewed (Atrial ventricular dual paced rhythmBilateral ventricular paced rhythm) Assessment and Plan Advance Directives: Yes - Patient Problems (1) Implantable cardioverter-defibrillator (ICD) in situ Current Visit: Yes Status: Chronic Plan to address problem: Needs interrogation Patient did not have any shocklike sensation (2) Near syncope Current Visit: Yes Status: Acute Plan to address problem: Possible secondary to orthostasis Will get orthostatics (3) Hypertension Current Visit: Yes Status: Chronic Qualifiers: Hypertension type: primary hypertension Qualified Code(s): I10 - Essential (primary) hypertension Plan to address problem: Continue antihypertensives and adjust medications as necessary (4) Coronary artery disease Current Visit: Yes Status: Chronic Qualifiers: Coronary Disease-Associated Artery/Lesion type: [place] artery [place] vs. transplanted heart: [place] heart Plan to address problem: Continue isosorbide mononitrate and aspirin (5) HLD (hyperlipidemia) Current Visit: Yes Status: Chronic Qualifiers: Hyperlipidemia type: mixed hyperlipidemia Qualified Code(s): E78.2 - Mixed hyperlipidemia Plan to address problem: Continue statins (6) DVT prophylaxis Current Visit: Yes Status: Acute Plan to address problem: On anticoagulation GI prophylaxis (7) Advance care planning Current Visit: Yes Status: Acute Plan to address problem: Disease education conducted, diagnosis discussed care prognosis discussed and care plan discussed. Patient acknowledged understanding. Patient is full code. Care plan +30 minutes
--- NOTE | 2021-11-30 08:40 | Electrocardiograph Report ---
[facility] Test Date: 2021-11-29 Test Time: 12:20:40 Pat Name: DEANDRA GROSSMAN Department: Room: A472 Gender: F Rib Puller: GP : 1945 Requested By: LON KHOURY Order Number: [id number] Reading MD: Everett Perez Measurements Intervals [place] Rate: 59 P: NV: 145 QRS: -4 QRSD: 167 T: 231 QT: 566 QTc: 562 Interpretive Statements Atrial-ventricular dual-paced rhythm Biventricular paced rhythm No previous ECG available for comparison Electronically Signed On 11-30-2021 8:40:36 EDT by Everett Perez
[2021-11-30] MEDS: ACETAMINOPHEN 325 MG TAB PO PRN ×2 (09:36→14:58)
[2021-11-30 09:39] VITALS: BP 94/46
[2021-11-30] MEDS ORDERED: CANDESARTAN 32 MG PO SCH (10:00)
[2021-11-30] MEDS ORDERED: amLODIPine 10 MG TAB PO SCH (10:00)
[2021-11-30] MEDS ORDERED: AMLODIPINE 10 MG PO SCH (10:00)
[2021-11-30] MEDS ORDERED: LOSARTAN 50 MG TAB PO SCH (10:00)
[2021-11-30] MEDS ORDERED: MECLIZINE 12.5 MG TAB PO PRN (10:45)
--- NOTE | 2021-11-30 11:39 | Consultation ---
History of Present Illness Consult date: 11/30/21 Requesting physician: KHUSHBU LIU Consult reason: other History of present illness: Patient is a 76-year-old female with a past medical history of coronary artery disease s/p PCI, hypertension, chronic systolic and diastolic heart failure, ischemic cardiomyopathy, left bundle branch block, BiV ICD (Medtronic) who presents to the ED yesterday with a complaint of near syncope. Patient reports that yesterday she got up and suddenly she felt everything spinning and due to this feeling she fell. Patient to ED for further evaluation. Patient denies any other symptoms including chest pain, shortness of breath, palpitations, nausea, vomiting, device shock. Of note patient has recently relocated from [facility] about 4 weeks ago. Patient is previously unknown to our practice. Cardiology, was consulted for device interrogation Past History Past Medical History: CAD, hypertension, hyperlipidemia Past Surgical History: No surgical history Social history: smoking (former) Medications and Allergies Allergies Allergy/AdvReac Type Severity Reaction Status Date / Time lisinopril Allergy Angioedema Verified 11/29/21 17:36 Home Medications Medication Instructions Recorded Confirmed Last Taken Type Atorvastatin 80 mg PO QHS 11/29/21 11/29/21 Unknown History Candesartan (NF) 32 mg PO DAILY 11/29/21 11/29/21 Unknown History Isosorbide Mononitrate ER 30 mg PO DAILY 11/29/21 11/29/21 Unknown History Nitroglycerin 0.4 mg SL PRN 11/29/21 11/29/21 Unknown History Uloric 40 mg PO DAILY 11/29/21 11/29/21 Unknown History amLODIPine 10 mg pe PO DAILY 11/29/21 11/29/21 Unknown History carvediloL 25 mg PO DAILY 11/29/21 11/29/21 Unknown History tiZANidine 4 mg PO Q6HR PRN 11/29/21 11/29/21 Unknown History Active Meds: Active Medications Acetaminophen (Acetaminophen 325 Mg Tab) 650 mg PO Q4H PRN PRN Reason: Pain MILD(1-3)/Fever >100.5/REED Last Admin: 11/30/21 09:36 Dose: 650 mg Amlodipine Besylate (Amlodipine 10 Mg Tab) 10 mg PO DAILY [facility] Last Admin: 11/30/21 09:38 Dose: Not Given Atorvastatin Calcium (Atorvastatin 40 Mg Tab) 80 mg PO QHS [facility] Last Admin: 11/29/21 23:05 Dose: Not Given Isosorbide Mononitrate (Isosorbide Mononitrate Er 30 Mg Tab) 30 mg PO DAILY [facility] Last Admin: 11/30/21 09:38 Dose: Not Given Losartan Potassium (Losartan 50 Mg Tab) 100 mg PO QDAY [facility] Last Admin: 11/30/21 09:38 Dose: Not Given Meclizine HCl (Meclizine 12.5 Mg Tab) 12.5 mg PO Q12H PRN PRN Reason: Vertigo Miscellaneous Medication (Uloric) 40 mg PO DAILY [facility] Ondansetron HCl (Ondansetron 4 Mg/2 Ml Inj) 4 mg IV Q8H PRN PRN Reason: Nausea And Vomiting Last Admin: 11/30/21 00:25 Dose: 4 mg Oxycodone/Acetaminophen (Oxycodone /Acetaminophen 5-325mg Tab) 1 tab PO Q6H PRN PRN Reason: Pain, Moderate (4-6) Pneumococcal Polyvalent Vaccine (Pneumococcal 23 Valent 0.5 Ml Vial) 0.5 ml IM .ONCE ONE Stop: 11/30/21 12:01 Sodium Chloride (Sodium Chloride 0.9% 10 Ml Flush Syringe) 10 ml IV BID [facility] Last Admin: 11/30/21 09:35 Dose: 10 ml Sodium Chloride (Sodium Chloride 0.9% 10 Ml Flush Syringe) 10 ml IV PRN PRN PRN Reason: LINE FLUSH Tizanidine HCl (Tizanidine Tab 4 Mg Tab) 4 mg PO Q6HR PRN PRN Reason: Muscle Spasm Review of Systems Constitutional: no weight loss, no weight gain, no fever, no chills Ears, nose, mouth and throat: no sinus pressure, no sinus pain Cardiovascular: no chest pain, no orthopnea, no palpitations, no shortness of breath, no dyspnea on exertion Respiratory: no shortness of breath, no dyspnea on exertion Gastrointestinal: no abdominal pain, no nausea, no vomiting Musculoskeletal: neck pain Integumentary: no rash, no pruritis, no redness Neurological: syncope, vertigo Psychiatric: no anxiety, no memory loss Endocrine: no cold intolerance, no heat intolerance Hematologic/Lymphatic: no easy bruising, no easy bleeding Physical Examination Vital Signs Temp Pulse Resp BP Pulse Ox 97.6 F 60 16 138/64 100 11/29/21 11:54 11/29/21 11:54 11/29/21 11:54 11/29/21 11:54 11/29/21 11:54 General appearance: no acute distress Neck: Positive: trachea midline Cardiac: Positive: Reg Rate and Rhythm Lungs: Positive: Normal Breath Sounds Neuro: Positive: Grossly Intact Abdomen: Positive: Soft, Active Bowel Sounds Skin: Negative: Rash, Suspicious Lesions, Ulceration Extremities: Present: upper extr. pulses. Absent: edema Results 11/30/21 05:31 11/30/21 05:31 Cardiac Enzymes 11/29/21 Range/Units 13:55 AST 21 (5-40) units/L CBC 11/29/21 11/30/21 Range/Units 13:55 05:31 WBC 8.5 7.5 (4.5-11.0) K/mm3 RBC 3.80 3.94 (3.65-5.03) M/mm3 Hgb 10.0 L 10.5 (10.1-14.3) gm/dl Hct 31.6 32.6 (30.3-42.9) % Plt Count 296 341 (140-440) K/mm3 Lymph # (Auto) 1.7 2.3 (1.2-5.4) K/mm3 [place] # (Auto) 0.5 0.6 (0.0-0.8) K/mm3 Eos # (Auto) 0.0 0.0 (0.0-0.4) K/mm3 Baso # (Auto) 0.1 0.0 (0.0-0.1) K/mm3 Comprehensive Metabolic Panel 11/29/21 11/30/21 Range/Units 13:55 05:31 Sodium 142 142 (137-145) mmol/L Potassium 4.3 4.5 (3.6-5.0) mmol/L Chloride 106.8 101.4 (98-107) mmol/L Carbon Dioxide 24 29 (22-30) mmol/L BUN 12 12 (7-17) mg/dL Creatinine 0.7 0.9 (0.6-1.2) mg/dL Glucose 100 96 (65-100) mg/dL Calcium 9.4 9.9 (8.4-10.2) mg/dL AST 21 (5-40) units/L ALT 9 (7-56) units/L Alkaline Phosphatase 112 (35-129) units/L Total Protein 7.9 (6.3-8.2) g/dL Albumin 3.9 (3.9-5) g/dL - Imaging and Cardiology Echo: pending, report reviewed Cardiac cath: report reviewed EKG: report reviewed, image reviewed EKG interpretations - Telemetry EKG Rhythm: Paced AV and intraventricular conduction: left bundle branch block Pacemaker: ventricular pacing w/capt, atrial pacing w/capture Assessment and Plan Patient is a 76-year-old female with a past medical history of coronary artery disease s/p PCI, hypertension, chronic systolic and diastolic heart failure, ischemic cardiomyopathy, left bundle branch block, BiV ICD (Medtronic) who presents to the ED yesterday with a complaint of near syncope Near Syncope CAD (coronary artery disease) HTN (hypertension) Mixed hyperlipidemia Chronic combined systolic and diastolic CHF (congestive heart failure) (HCC) CKD (chronic kidney disease) Hyperglycemia Ischemic cardiomyopathy LBBB (left bundle branch block) BI-V ICD (Medtronic)-placed in [facility] in 2019 Echo 10/10/16 EF 55-60% Cardiac Catheterization 11/12/16 Successful PCI of LAD (Roto/stent) with Impella support Successful PCI of LCx (Roto/stent) with Impella support Successful PCI of the Left Main (Roto/stent) with Impella support Echo 01/28/2020 severely depressed LVEF 25-30% Plan: EKG shows atrial ventricular dual paced rhythm biventricular paced rhythm. No acute ischemic change. Troponins negative x1. Patient denies any complaint of chest pain Echo pending Device was interrogated by [employer] which showed no episodes and normally functioning device Patient symptoms consistent with vertigo Orthostatic vital signs pending Will initiate meclizine 12.5 mg p.o. twice daily vertigo Patient currently on amlodipine, atorvastatin 80 mg p.o. nightly, Imdur 30 mg p.o. daily, losartan 100 mg p.o. daily Cardiac status otherwise stable Patient may follow-up with Dr. Perez, [facility] radiology specialist, on 830 05/20/2021 at 2 PM in our [place] location. Phone #[phone] Patient seen in conjunction with Dr. Perez who agrees with this plan of care - Patient Problems (1) Ischemic cardiomyopathy Current Visit: Yes Status: Acute (2) Near syncope Current Visit: Yes Status: Acute (3) Neck pain Current Visit: Yes Status: Acute (4) Coronary artery disease Current Visit: Yes Status: Chronic Qualifiers: Coronary Disease-Associated Artery/Lesion type: [place] artery [place] vs. transplanted heart: [place] heart (5) HLD (hyperlipidemia) Current Visit: Yes Status: Chronic Qualifiers: Hyperlipidemia type: mixed hyperlipidemia Qualified Code(s): E78.2 - Mixed hyperlipidemia (6) Hypertension Current Visit: Yes Status: Chronic Qualifiers: Hypertension type: primary hypertension Qualified Code(s): I10 - Essential (primary) hypertension (7) Implantable cardioverter-defibrillator (ICD) in situ Current Visit: Yes Status: Chronic
[2021-11-30] MEDS ORDERED: PNEUMOCOCCAL 23 Valent 0.5 ML VIAL IM ONE (12:00)
--- NOTE | 2021-11-30 15:22 | Discharge Summary ---
Providers - Providers Date of Admission: 11/29/21 17:29 Date of discharge: 11/30/21 Attending physician: KHUSHBU LIU 11/29/21 17:37 Consult to Physician [CONS] Routine Comment: Consulting Provider: OG CASILLAS Physician Instructions: Reason For Exam: Dual Chamber Pacemaker Interrogation 11/29/21 21:38 Consult to Dietitian/Nutrition [CONS] Routine Physician Instructions: Reason For Exam: 10 lb wt loss in 2 months. Drinks 2 ensures daily Reason for Consult: Pt needs oral supplement Primary care physician: [employer] SUPER[employer]OR Hospitalization Condition: Good Hospital course: History of present illness: This patient is a pleasant and cooperative 76-year-old female who recently relocated from [place]. She does not have a local primary care doctor or clinical staff rn. Her past medical history includes atrial pacemaker, CAD, hypertension and possible high cholesterol. She also reports multiple cardiac stents. She presents to the department today with a complaint of near syncope/loss of consciousness multiple times. About a week ago, she developed an occipital and right-sided left-sided neck headache, which is not sudden or thunderclap in nature, not maximal in intensity. She was seen in an outpatient urgent care center, who recommended that her symptoms are most likely musculoskeletal. There is no recent trauma, motor vehicle accident, or chiropractic manipulation. Today, she reports that she got up from sitting, and felt lightheaded. She then went to the bathroom, but did not urinate or defecate. She again felt dizzy and lightheaded, but did not pass out. She sat down, and did not hit her head. She then reports that she went to lay down, and felt dizzy and lightheaded ag ain. She reports recent trip from [place]. She denies loss of vision, midline neck pain, chest pain, abdominal pain, shortness of breath, hematemesis and bright red blood per rectum. She endorses compliance with her medications, and reports that she has had no recent medication changes. Patient reports having a pacemaker defibrillator placed at [facility] in 2020. She states that it was placed for a mild heart attack. She does not have a device card on her Assessment and Plan Advance Directives: Yes - Patient Problems (1) Implantable cardioverter-defibrillator (ICD) in situ Current Visit: Yes Status: Chronic Plan to address problem: Needs interrogation Patient did not have any shocklike sensation (2) Near syncope Current Visit: Yes Status: Acute Plan to address problem: Interrogation was done was normal (3) Hypertension Current Visit: Yes Status: Chronic Qualifiers: Hypertension type: primary hypertension Qualified Code(s): I10 - Essential (primary) hypertension Plan to address problem: Continue antihypertensives and adjust medications as necessary (4) Coronary artery disease Current Visit: Yes Status: Chronic Qualifiers: Coronary Disease-Associated Artery/Lesion type: [place] artery [place] vs. transplanted heart: [place] heart Plan to address problem: Continue isosorbide mononitrate and aspirin (5) HLD (hyperlipidemia) Current Visit: Yes Status: Chronic Qualifiers: Hyperlipidemia type: mixed hyperlipidemia Qualified Code(s): E78.2 - Mixed hyperlipidemia Plan to address problem: Continue statins (6) DVT prophylaxis Current Visit: Yes Status: Acute Plan to address problem: On anticoagulation GI prophylaxis (7) Advance care planning Current Visit: Yes Status: Acute Plan to address problem: Disease education conducted, diagnosis discussed care prognosis discussed and care plan discussed. Patient acknowledged understanding. Patient is full code. Care plan +30 minutes Disposition: 01 HOME / SELF CARE / HOMELESS Final Discharge Diagnosis (Prints w/discharge instructions): Syncope. Hypertension. Implantable cardioverter defibrillator in situ. Coronary artery disease. Hyperlipidemia Time spent for discharge: 35 minutes - Discharge Diagnoses (1) Implantable cardioverter-defibrillator (ICD) in situ Status: Chronic (2) Near syncope Status: Acute (3) Hypertension Status: Chronic Qualifiers: Hypertension type: primary hypertension Qualified Code(s): I10 - Essential (primary) hypertension (4) Coronary artery disease Status: Chronic Qualifiers: Coronary Disease-Associated Artery/Lesion type: [place] artery [place] vs. transplanted heart: [place] heart (5) HLD (hyperlipidemia) Status: Chronic Qualifiers: Hyperlipidemia type: mixed hyperlipidemia Qualified Code(s): E78.2 - Mixed hyperlipidemia (6) DVT prophylaxis Status: Acute (7) Advance care planning Status: Acute Core Measure Documentation - Palliative Care Palliative Care/ Comfort Measures: Not Applicable - Core Measures Any of the following diagnoses?: none Exam - Constitutional Vitals: Temp Pulse Resp BP Pulse Ox 97.6 F 64 18 94/46 100 11/29/21 11:54 11/30/21 10:55 11/30/21 10:55 11/30/21 09:38 11/30/21 10:55 General appearance: Present: no acute distress, well-nourished - EENT Eyes: Present: PERRL ENT: hearing intact, clear oral mucosa - Neck Neck: Present: supple, normal ROM - Respiratory Respiratory effort: normal Respiratory: bilateral: CTA - Cardiovascular Heart rate: 78 Rhythm: regular Heart Sounds: Present: S1 & S2. Absent: rub, click - Extremities Extremities: pulses symmetrical, No edema Peripheral Pulses: within normal limits - Abdominal General gastrointestinal: Present: soft, non-tender, non-distended, normal bowel sounds Female genitourinary: Present: normal - Integumentary Integumentary: Present: clear, warm, dry - Musculoskeletal Musculoskeletal: gait normal, strength equal bilaterally - Psychiatric Psychiatric: appropriate mood/affect, intact judgment & insight - Neurologic Neurologic: CNII-XII intact, moves all extremities Plan Activity: no restrictions Diet: low cholesterol, low salt Follow up with: PRIMARY MD JENNIFER [Primary Care Provider] - 3-5 Days SUMMER BLACK MD [Staff Physician] - 7 Days
== END 2021-11-30 18:53 | disposition home or self-care (01) ==
LOC: ED 11:45 → INTOOBSV 17:29 → 4A 17:29
PROVIDERS: ADMIT Internal Medicine; ATTEND Internal Medicine
DX: T82.9XXA Unspecified complication of cardiac and vascular prosthetic device, implant and graft, initial encounter (principal); R55 Syncope and collapse; I13.0 Hypertensive heart and chronic kidney disease with heart failure and stage 1 through stage 4 chronic kidney disease, or unspecified chronic kidney disease; I25.5 Ischemic cardiomyopathy; I50.42 Chronic combined systolic (congestive) and diastolic (congestive) heart failure; N18.9 Chronic kidney disease, unspecified; I25.10 Atherosclerotic heart disease of native coronary artery without angina pectoris; E11.65 Type 2 diabetes mellitus with hyperglycemia; E78.2 Mixed hyperlipidemia; R51.9 Headache, unspecified; M54.2 Cervicalgia; M10.9 Gout, unspecified; Z95.0 Presence of cardiac pacemaker; Z79.899 Other long term (current) drug therapy; Z98.890 Other specified postprocedural states
CPT/HCPCS: 36415; 70450; 70496; 70498; 71275; 80048; 80053; 81001; 82550; 83735; 84443; 84484; 85025; 85379; 93005; 96374; 96375; 99285; C8929; G0378; J2270; J2405; J7120; Q9967; 80320; 93306; G0480